=== PATIENT | male | born 1950 | race African-American/Black ===

== ENCOUNTER 2020-01-09 18:13 | Inpatient (IN) ==
[2020-01-09] MEDS ORDERED: methylPREDNISolone SOD SUC 40 MG/1 ML VIAL IV STA (18:49)
[2020-01-09] MEDS ORDERED: ALBUTEROL/IPRATROPIUM 3 ML NEB RESP TX STA (18:49)
[2020-01-09 18:57] LABS: Basophils % 0.3 % (0.0-0.8); Eosinophils % 0.5 % (0.00-10.9); Hemoglobin 12.4 GM/DL (14.0-18.0); Immature Granulocytes % 0.3 %; Immature Granulocytes Absolute 0.02 #; Lymphocytes # 0.4 10*3/uL (1.4-4.0); Lymphocytes % 6.5 % (21.2-54.2); Mean Corpuscular HGB Conc 31.8 GM/DL (32-36); Mean Corpuscular Volume 90.9 FL (87-102); Mean Platelet Volume 10.7 FL (9.6-12.0); Monocytes % 6.5 % (1.7-12.7); Neutrophils % 85.9 % (38.7-73.9); Platelet Count 124 T/CUMM (130-400); Red Blood Count 4.29 MC/CUMM (3.8-5.5); White Blood Count 6.5 T/CUMM (4-12)
[2020-01-09] MEDS ORDERED: methylPREDNISolone SOD SUC 125 MG/2 ML VIAL ONE (19:07)
[2020-01-09 19:31] LABS: Alanine Aminotransferase 31 U/L (16-61); Albumin 3.4 G/DL (3.4-5.0); Alkaline Phosphatase 87 U/L (45-117); Aspartate Amino Transferase 27 U/L (0-37); Bilirubin,Total < 0.39 MG/DL (0.2-1.0); Blood Urea Nitrogen 14 MG/DL (7-18); Calcium 8.5 MG/DL (8.5-10.1); Estimated Glom Filtration Rate 66 ML/MIN; Glucose 116 MG/DL (74-106); Osmolality,Calculated 274.8 MOS/KG (273-304); Total Protein 6.7 G/DL (6.4-8.3)
[2020-01-09] MEDS ORDERED: SODIUM CHLORIDE 0.9% 1,000 ML IV STA (19:35)
[2020-01-09] MEDS ORDERED: cefTRIAXone 1,000 MG in SODIUM CHLORIDE 0.9% 100 ML IV STA (19:46)
[2020-01-09] MEDS ORDERED: ACETAMINOPHEN 500 MG TABLET ONE (19:48)
[2020-01-09] MEDS ORDERED: ACETAMINOPHEN 500 MG TABLET PO STA (19:48)
[2020-01-09] MEDS ORDERED: cefTRIAXone 1,000 MG VIAL ONE (19:48)
[2020-01-09 22:13] LABS: Apearance,Urine CLEAR (Clear); Bilirubin,Urine Negative (Negative); Blood, Urine Moderate mg/dL (Negative); Glucose,Urine (UA) Negative (Negative); Ketones,Urine Negative (Negative); Mucus,Urine Occasional /LPF (Occasional); Nitrite,Urine Negative (Negative); Protein,Urine Negative; RBC,Urine 4 /HPF (0-4); Squamous Epithelial Cell,Urine Occasional /HPF (0-10); Urine Color Yellow (Yellow); Urine Specific Gravity 1.016 (1.001-1.035); Urine Urobilinogen < 2.0 EU/DL (0.2-1.0); WBC,Urine 1 /HPF (0-6)
[2020-01-09] MEDS ORDERED: MAGNESIUM SULF RIDER 4 GM in PREMIX 1 EACH IV PRN (22:30)
[2020-01-09] MEDS ORDERED: ALBUTEROL 2.5 MG/3 ML NEB RESP TX PRN (22:30)
[2020-01-09] MEDS ORDERED: MAGNESIUM SULF RIDER 2 GM in PREMIX 1 EACH IV PRN (22:30)
[2020-01-09] MEDS ORDERED: DOCUSATE SODIUM 100 MG CAPSULE PO PRN (22:30)
[2020-01-09] MEDS ORDERED: hydrALAZINE 20 MG/1 ML VIAL IV PRN (22:30)
[2020-01-09] MEDS ORDERED: ACETAMINOPHEN 325 MG TABLET PO PRN (22:30)
[2020-01-09] MEDS ORDERED: ONDANSETRON 4 MG/2 ML VIAL IV PRN (22:30)
[2020-01-09] MEDS: AZITHROMYCIN INJ 500 MG in SODIUM CHLORIDE 0.9% 250 ML IV SCH (23:08)
[2020-01-09] MEDS: SODIUM CHLORIDE 0.9% 1,000 ML IV SCH (23:09)
[2020-01-09] MEDS: POTASSIUM CHLORIDE 20 MEQ TABLET PO PRN (23:09)
[2020-01-10] MEDS: ALBUTEROL/IPRATROPIUM 3 ML NEB RESP TX SCH ×4 (00:59→20:20)
[2020-01-10] MEDS: POTASSIUM CHLORIDE 20 MEQ TABLET PO PRN ×2 (01:10→03:14)
[2020-01-10 02:32] LABS: Basophils % 0.4 % (0.0-0.8); Hematocrit 35.2 VOL% (42.0-52.0); Hemoglobin 11.5 GM/DL (14.0-18.0); Immature Granulocytes % 0.4 %; Immature Granulocytes Absolute 0.02 #; Lymphocytes # 0.3 10*3/uL (1.4-4.0); Lymphocytes % 5.4 % (21.2-54.2); Mean Corpuscular HGB Conc 32.7 GM/DL (32-36); Mean Corpuscular Volume 89.8 FL (87-102); Monocytes % 1.1 % (1.7-12.7); Neutrophils % 92.7 % (38.7-73.9); Platelet Count 106 T/CUMM (130-400); Red Blood Count 3.92 MC/CUMM (3.8-5.5); Red Cell Distribution Width 13.2 % (9.3-17.3); White Blood Count 5.4 T/CUMM (4-12)
[2020-01-10 02:45] LABS: Calcium 8.2 MG/DL (8.5-10.1); Osmolality,Calculated 286.4 MOS/KG (273-304)
[2020-01-10 04:06] LABS: Lymphocytes 3 % (20-55); Segmented Neutrophils 95 % (50-85)
[2020-01-10 04:07] LABS: Hypochromasia 1+; Platelet Estimate Adequate
[2020-01-10 04:08] LABS: Total Cells Counted 100
[2020-01-10] MEDS: predniSONE 20 MG TABLET PO SCH (08:53)
[2020-01-10] MEDS: TAMSULOSIN 0.4 MG CAPSULE PO SCH (08:53)
[2020-01-10] MEDS: RIVAROXABAN 15 MG TABLET PO SCH (08:53)
[2020-01-10] MEDS: PANTOPRAZOLE 40 MG TABLET PO SCH (08:53)
[2020-01-10] MEDS: DOCUSATE SODIUM 100 MG CAPSULE PO SCH (08:53)
[2020-01-10] MEDS: PSYLLIUM POWDER 3.7 GM/PACK PO SCH (08:54)
[2020-01-10] MEDS: FLUTICASONE/SALMETEROL 250-50 DISKUS 14 DOSE INH SCH ×2 (08:55→22:34)
[2020-01-10] MEDS: SODIUM CHLORIDE 0.9% 1,000 ML IV SCH (10:38)
[2020-01-10] MEDS ORDERED: SODIUM CHLORIDE 0.9% 1,000 ML IV SCH ×2 (13:00)
[2020-01-10] MEDS ORDERED: cefTRIAXone 1,000 MG in SYRINGE 1 EACH IV SCH (20:00)
[2020-01-11] MEDS: ALBUTEROL/IPRATROPIUM 3 ML NEB RESP TX SCH ×2 (00:05→07:25)
[2020-01-11] MEDS: AZITHROMYCIN INJ 500 MG in SODIUM CHLORIDE 0.9% 250 ML IV SCH (00:11)
[2020-01-11 04:56] LABS: Basophils % 0.2 % (0.0-0.8); Hematocrit 34.1 VOL% (42.0-52.0); Immature Granulocytes % 0.6 %; Immature Granulocytes Absolute 0.03 #; Lymphocytes # 0.6 10*3/uL (1.4-4.0); Lymphocytes % 11.9 % (21.2-54.2); Mean Corpuscular HGB Conc 32.3 GM/DL (32-36); Mean Platelet Volume 11.3 FL (9.6-12.0); Monocytes % 15.1 % (1.7-12.7); Neutrophils % 72.2 % (38.7-73.9); Platelet Count 114 T/CUMM (130-400); Red Blood Count 3.79 MC/CUMM (3.8-5.5); Red Cell Distribution Width 13.4 % (9.3-17.3); White Blood Count 5.4 T/CUMM (4-12)
[2020-01-11] MEDS: POTASSIUM CHLORIDE 20 MEQ TABLET PO PRN ×3 (06:02→10:50)
[2020-01-11] MEDS: PSYLLIUM POWDER 3.7 GM/PACK PO SCH (08:23)
[2020-01-11] MEDS: predniSONE 20 MG TABLET PO SCH (08:23)
[2020-01-11] MEDS: DOCUSATE SODIUM 100 MG CAPSULE PO SCH (08:24)
[2020-01-11] MEDS: RIVAROXABAN 15 MG TABLET PO SCH (08:24)
[2020-01-11] MEDS: FLUTICASONE/SALMETEROL 250-50 DISKUS 14 DOSE INH SCH (08:24)
[2020-01-11] MEDS: PANTOPRAZOLE 40 MG TABLET PO SCH (08:24)
[2020-01-11] MEDS: TAMSULOSIN 0.4 MG CAPSULE PO SCH (08:24)
[2020-01-11 11:39] VITALS: BP 134/76
[2020-01-11] MEDS ORDERED: AZITHROMYCIN 250 MG TABLET PO SCH (21:00)
== END 2020-01-11 12:41 | disposition home or self-care (01) | DRG 872 ==
LOC: N.ED 18:13 → N.EDINP 19:57 → N.2E 21:26
PROVIDERS: ADMIT Emergency Medicine; ATTEND Emergency Medicine